=== PATIENT | male | born 1980 | race Caucasian/White ===

== ENCOUNTER 2018-06-26 10:28 | Inpatient (IN) ==
[2018-06-26] MEDS ORDERED: Baclofen 10 MG Tablet PO ONE (11:53)
[2018-06-26] MEDS ORDERED: Loperamide 2 MG Capsule PO ONE (11:53)
[2018-06-26] MEDS ORDERED: Acetaminophen 325 MG Tablet PO ONE (11:53)
[2018-06-26] MEDS ORDERED: Sod Chloride 0.9% Inj 1,000 ML IV.SIG SCH (12:00)
--- NOTE | 2018-06-26 12:05 | ED ---
HPI General Chief complaint: Abdominal Pain Stated complaint: n/v/ fever x1day Source: patient and family Mode of arrival: ambulatory Limitations: no limitations History of Present Illness HPI narrative: This patient is brought in by his mother with the chief complaint of heroin withdrawal. Mother also voices concern over profound weight loss. She estimates over 50 pounds since February. His withdrawal complaints include abdominal pain, vomiting, restlessness and muscle cramping. He also has insomnia. Onset (ago): day(s) (Symptoms started yesterday. His last use of heroin was 2 days ago.) Severity: moderate Pain Consistency: constant Relieving factors: none Exacerbating factors: none Associated symptoms: diaphoresis, loss of appetite, nausea/vomiting and weakness Treatments prior to arrival: none Related Data Home Medications Medication Instructions Recorded Confirmed No Known Home Medications 06/26/18 06/26/18 Allergies Allergy/AdvReac Type Severity Reaction Status Date / Time No Known Allergies Allergy Verified 06/26/18 11:01 Review of Systems ROS: all other systems reviewed are negative [facility] Medical History Medical History Addiction to drug (Acute) Social History Social History Substance History: Active Abuse Second Hand Smoke Exposure: Yes Smoking Status: Current every day smoker Tobacco Type: Cigarettes How Often Do You Have a Drink Containing Alcohol: Monthly or less Recent Travel in [facility] within the Last 8 Weeks: No Recent Out of Country Travel within the Last 8 Weeks: No Substance Abuse Detail Heroin: Substance Use Status: Active Route Used Substance Abuse: Intravenously Substance Abuse Comment: last herion use 2 days ago Reason for Use: Feels Good Immunization History Tetanus Immunization: Unsure Hx Influenza Vaccine This Season: No Exam Const General: cooperative, well developed and other (Restless. Yawning.) Nutritional Appearance: cachectic, malnourished and thin Orientation: alert, awake and oriented x3 HENMT Head: normal to inspection, normocephalic and atraumatic Mouth: moist mucous membranes abnormal (Dry mucous membranes) Eyes Conjunctivae: conjunctivae normal Sclera: sclerae normal EOM: EOM intact bilaterally Neck Neck: normal visual inspection and full ROM Chest Chest: normal inspection of the chest Resp Effort & Inspection: normal respiratory effort and able to speak in complete sentences Auscultation: clear to auscultation bilaterally Cardio Rate: regular rate Rhythm: regular rhythm GI Inspection: normal to inspection Palpation: soft and nontender Back/Spine/Pelvis Cervical Spine: cervical ROM normal Thoracic/Lumbar Spine: thoraco-lumbar ROM normal Skin General: no rashes or lesions noted and turgor normal Neuro General: alert, awake, oriented x3, moves all extremities and CN's II-XI intact bilaterally Extrem General: normal to inspection and full ROM Psych Appearance: grossly normal Mental Status: mental status grossly normal Speech and Movement: speech and movement normal Mood: congruent mood Affect: normal affect Attitude: cooperative Thought Process: normal Thought Content: normal Judgment: judgment good Procedures Central Line Placement Right SC: Time Out Performed: Yes Patient Placed on Monitor/Pulse Ox: Yes MD Prep: mask, gown and gloves Central Line Prep: Chlorhexidine scrub Local anesthesia used: lidocaine 1% Amount of anesthesia used (mL): 3 Ultrasound Used for Placement: No Central Line Lumen Inserted: triple Post Procedure: sutured in place Patient Tolerated Procedure: well Complications: none Course Hospital Course: IV access has been difficult. An IV had been obtained but quickly infiltrated. Therefore, a central line was placed. The patient is not capable of giving consent. Consent was obtained from his mother. Reevaluation(s) Reevaluation #1: Patient continues to be very restless. He also seems disoriented. The nurses report that he vomited all of his p.o. medications. Time: 13:43 Consultations Consultation #1: ROSI Olivares for Dr. Luna Time: 14:32 Initial Documented Vital Signs Temperature 99.3 F 06/26/18 10:37 Pulse Rate 53 L 06/26/18 10:37 Respiratory Rate 20 06/26/18 10:37 Blood Pressure 128/74 06/26/18 10:37 Pulse Oximetry 99 06/26/18 10:37 Last Documented Vital Signs Temperature 99.3 F 06/26/18 10:37 Pulse Rate 58 L 06/26/18 13:35 Respiratory Rate 18 06/26/18 13:35 Blood Pressure 112/63 06/26/18 13:35 Pulse Oximetry 97 06/26/18 13:35 Medical Decision Making MDM Narrative Medical decision making narrative: This patient is brought in by his mother with the chief complaint of heroin withdrawal. She is also concerned regarding a 50+ pound weight loss over the last 3 or 4 months. The patient is markedly cachectic. He will be treated here in the emergency department with IV fluids, IV Ativan, IM promethazine, oral loperamide, oral baclofen and oral Tylenol. I believe that this patient will need to be admitted for profound malnutrition, rule out AIDS. Medical Screen Exam Complete: Yes Emergency Medical Condition: Yes Differential Diagnosis Differential Diagnosis: Differential diagnosis of weakness includes but is not limited to infection, CVA, electrolyte disturbance, renal failure, hypoglycemia Lab Data Result diagrams: 06/26/18 12:02 06/26/18 12:02 Lab Results 06/26/18 06/26/18 06/26/18 Range/Units 12: 12:02 13:27 CBC w Diff Auto diff final WBC 9.6 (4.0-11.0) th/mm3 RBC 4.48 L (4.50-5.90) mil/mm3 Hgb 14.1 (13.0-17.0) gm/dL Hct 40.9 (39.0-51.0) % MCV 91.3 (80.0-100.0) fL MCH 31.5 (27.0-34.0) pg MCHC 34.5 (32.0-36.0) % RDW 12.4 (11.6-17.2) % Plt Count 323 (150-450) th/mm3 MPV 8.3 (7.0-11.0) fL Neut % (Auto) 85.1 H (16.0-70.0) % Lymph % (Auto) 11.3 (9.0-44.0) % [place] % (Auto) 1.7 (0.0-8.0) % Eos % (Auto) 0.1 (0.0-4.0) % Baso % (Auto) 1.8 (0.0-2.0) % Neut # (Auto) 8.1 H (1.8-7.7) th/mm3 Lymph # (Auto) 1.1 (1.0-4.8) th/mm3 [place] # (Auto) 0.2 (0.0-0.9) th/mm3 Eos # (Auto) 0.0 (0.0-0.4) th/mm3 Baso # (Auto) 0.2 (0.0-0.2) th/mm3 WBC Differential . Differential Comment . Sodium 139 (136-145) meq/L Potassium 3.6 (3.5-5.1) meq/L Chloride 103 (98-107) meq/L Carbon Dioxide 28.4 (21.0-32.0) meq/L Anion Gap 8 (5-15) meq/L BUN 12 (7-18) mg/dL Creatinine 0.77 (0.60-1.30) mg/dL Estimated GFR Greater than 89 (>89) mL/min Random Glucose 115 H (74-106) mg/dL Lactic Acid 0.8 (0.4-2.0) mmol/L Calcium 8.4 L (8.5-10.1) mg/dL Total Bilirubin 0.8 (0.2-1.0) mg/dL AST 85 H (15-37) U/L ALT 138 H (12-78) U/L Alkaline Phosphatase 96 (45-117) U/L Total Protein 7.5 (6.4-8.2) g/dL Albumin 3.6 (3.4-5.0) g/dL Lipase 136 (73-393) U/L Imaging Data Radiologist's impression: Chest X-Ray 06/26/18 13:31 CONCLUSION: Subclavian line as above. ECG Data EKG Prior to Arrival: No Attestation: I personally reviewed and interpreted this ECG as follows: (EKG shows a sinus bradycardia with a rate of 55. No acute ST changes.) Discharge Plan Discharge Disposition Patient Disposition: 30 Still Patient Discharge Details Diagnosis: Heroin withdrawal, Weakness, Abnormal weight loss Physicians Team ED Provider: Nehal Lai Primary Care Provider: Primary Care Christie García Rxs /Orders / Referrals /Forms Prescriptions: No Action No Known Home Medications RF: 0 Discharge Interventions Interventions: Vital Signs Last Done: 06/26/18 13:35 Status ED Status: Pending Admission
[2018-06-26 12:08] LABS: Baso # (Auto) 0.2 th/mm3 (0.0-0.2); Baso % (Auto) 1.8 % (0.0-2.0); Eos % (Auto) 0.1 % (0.0-4.0); Hematocrit 40.9 % (39.0-51.0); Hemoglobin 14.1 gm/dL (13.0-17.0); Lymph # (Auto) 1.1 th/mm3 (1.0-4.8); Lymph % (Auto) 11.3 % (9.0-44.0); Mean Corpuscular HGB Conc 34.5 % (32.0-36.0); Mean Corpuscular Hemoglobin 31.5 pg (27.0-34.0); Mean Corpuscular Volume 91.3 fL (80.0-100.0); Mean Platelet Volume 8.3 fL (7.0-11.0); Mono # (Auto) 0.2 th/mm3 (0.0-0.9); Mono % (Auto) 1.7 % (0.0-8.0); Neut # (Auto) 8.1 th/mm3 (1.8-7.7); Neut % (Auto) 85.1 % (16.0-70.0); Platelet Count 323 th/mm3 (150-450); Red Blood Count 4.48 mil/mm3 (4.50-5.90); Red Cell Distribution Width 12.4 % (11.6-17.2); White Blood Count 9.6 th/mm3 (4.0-11.0)
[2018-06-26 12:17] LABS: Chloride 103 meq/L (98-107); Potassium 3.6 meq/L (3.5-5.1); Sodium 139 meq/L (136-145)
[2018-06-26 12:21] LABS: Albumin 3.6 g/dL (3.4-5.0); Anion Gap 8 meq/L (5-15); Calcium 8.4 mg/dL (8.5-10.1); Carbon Dioxide 28.4 meq/L (21.0-32.0); Lipase 136 U/L (73-393)
[2018-06-26 12:22] LABS: Blood Urea Nitrogen 12 mg/dL (7-18); Glucose,Random 115 mg/dL (74-106)
[2018-06-26 12:24] LABS: Alanine Aminotransferase 138 U/L (12-78); Aspartate Aminotransferase 85 U/L (15-37); Glomerular Filtration Rate Greater Than 89 mL/min (>89)
[2018-06-26 12:26] LABS: Total Protein 7.5 g/dL (6.4-8.2)
[2018-06-26 12:27] LABS: Alkaline Phosphatase 96 U/L (45-117)
--- NOTE | 2018-06-26 14:01 | XR ---
EXAM DATE: 06/26/2018 1:49 PM EDT AGE/SEX: 38 years / Male INDICATIONS: Evaluate central line placement. CLINICAL DATA: This is the patient's initial encounter. Patient reports that signs and symptoms have been present for 1 day and indicates a pain score of 0/10. MEDICAL/SURGICAL HISTORY: None. None. COMPARISON: No prior exams available for comparison. FINDINGS: Right subclavian central venous catheter is noted and the tip overlies the SVC. Lungs are clear. Hear t and mediastinal contours are normal. Osseous structures are intact. CONCLUSION: Subclavian line as above. Electronically signed by: Phill Donald MD 06/26/2018 2:00 PM EDT
[2018-06-26 14:31] LABS: Bilirubin,Urine Negative (Negative); Clarity,Urine Cloudy (Clear); Color,Urine Yellow (Yellw/Straw); Glucose,Urine (UA) Negative (Negative); Leukocyte Esterase,Urine Negative (Negative); Nitrite,Urine Negative (Negative); PH,Urine 8.5 (5.0-8.5)
[2018-06-26] MEDS ORDERED: Bisacodyl 10 MG Supp RECTAL PRN (14:39)
[2018-06-26] MEDS ORDERED: Temazepam 15 MG Capsule PO PRN (14:39)
[2018-06-26] MEDS ORDERED: Acetaminophen 325 MG Tablet PO PRN (14:39)
[2018-06-26] MEDS ORDERED: Aluminum/Magnesium/Simethacone Susp 30 ML UDC PO PRN (14:44)
[2018-06-26 14:53] LABS: Collection Time,Urine 1424 hours
[2018-06-26 14:55] LABS: Amorphous Sediment,Urine Many /hpf; Squamous Epithelial Cell,Urine 0-5 /hpf (0-5)
[2018-06-26] MEDS: Sod Chloride 0.9% Inj 1,000 ML IV.CONT SCH (15:02)
[2018-06-26] MEDS ORDERED: hydrALAZINE HCl Inj 20 MG/ML Vial IV.PUSH PRN (16:13)
[2018-06-26] MEDS ORDERED: LORazepam 1 MG Tablet PO PRN (16:13)
--- NOTE | 2018-06-26 16:24 | P.HP ---
History of Present Illness Primary Care Physician: No Primary Care Physician Chief Complaint: Patient brought in by his mother for heroin withdrawal History of Present Illness: 38-year-old male with known history of substance abuse. Information was unobtainable from the patient due to his altered mentation, encephalopathy. Patient is barely orientated to self. Information was taken from mother. She indicates that patient had been living in [facility] and apparently had been doing well up until about 2 weeks ago when she noticed a change in his personality. He was indicated that the patient notified his mother that he is using drugs again and wanted to get help. So she has been driving for the last [address] up to [place] and pick him up and bring him home. They returned back to her house yesterday. She indicates that she has never seen him in this condition before being so malnourished, skinny, ribs poking out. Today they are trying to locate rehab facility in order for him to go. However he started developing nausea and vomiting and change in mentation. They decided that his withdrawal is beyond their capabilities so they brought him to the hospital for evaluation. Patient had workup done in the emergency department and because of his mentation, physical status it was recommended that the patient be admitted for further evaluation and management. - Diagnosis (1) Encephalopathy (2) Heroin withdrawal (3) Weakness (4) Abnormal weight loss Review of Systems unobtainable due to mental status PMFSH - History History Provided By: Patient, Family Member - Medical History Medical History: Medical History (Last Reviewed 06/26/18 @ 16:19 by ROSI Kang) Addiction to drug - Surgical History Surgical History: Surgical History (Last Updated 06/26/18 @ 16:19 by ROSI Kang) No history of previous surgery - Family History Family History: Family History (Last Updated 06/26/18 @ 16:18 by ROSI Kang) Father History of throat cancer - Tobacco History Second Hand Smoke Exposure: Yes Tobacco Use In Past 30 Days: Yes Smoking Status: Current every day smoker Tobacco Type: Cigarettes - Alcohol History How Often Do You Have a Drink Containing Alcohol: Monthly or less - Substance Use History Substance History: Active Abuse - Substance Use Type Heroin Status: Active Route Used: Intravenously Reason for Use: Feels Good Comment: last herion use 2 days ago Other Type: Fentanyl Status: Active - Travel History Recent Travel in the [place] Within the Last 8 Weeks: No Recent Travel Out of the Country Within the Last 8 Weeks: No - Immunization History Tetanus Immunization: Unsure Hx Influenza Vaccine This Season: No Medications and Allergies Active Medications: Active Medications Acetaminophen (Tylenol) 650 mg PO Q4H PRN PRN Reason: HEADACHE OR TEMP > 101 F Al Hydrox/Mg Hydrox/Simethicone (Mag-Al Plus Susp Liq) 30 ml PO Q6H PRN PRN Reason: INDIGESTION Al Hydroxide/Mg Hydroxide (Milk Of Magnesia Liq) 30 ml PO Q12H PRN PRN Reason: Mild Constipation Bisacodyl (Dulcolax Supp) 10 mg RECTAL DAILY PRN PRN Reason: SEVERE CONSITIPATION Clonidine HCl (Catapres) 0.1 mg PO Q6H PRN PRN Reason: SBP>160, DBP>90 Flumazenil (Romazecon Inj) 0.2 mg IV.PUSH Q1M PRN PRN Reason: OVERSEDATION Haloperidol Lactate (Haldol Inj) 1 mg IV.PUSH Q15M PRN PRN Reason: for severe agitation Hydralazine HCl (Apresoline Inj) 20 mg IV.PUSH Q6HR PRN PRN Reason: SBP>200, DBP>100 Sodium Chloride (Ns Inj) 1,000 mls @ 0 mls/hr IV.SIG BOLUS [facility] Last Admin: 06/26/18 12:55 Dose: 999 mls/hr Sodium Chloride (Ns Inj) 1,000 mls @ 100 mls/hr IV.CONT .Q10H [facility] Last Admin: 06/26/18 15:02 Dose: 100 mls/hr Lactulose (Lactulose Liq) 30 ml PO DAILY PRN PRN Reason: SEVERE CONSITIPATION Lorazepam (Ativan) 1 mg PO Q4H PRN PRN Reason: for CIWA 8-10 Lorazepam (Ativan) 2 mg PO Q2H PRN PRN Reason: for CIWA 11-14 Lorazepam (Ativan Inj) 2 mg IV.PUSH Q2H PRN PRN Reason: for CIWA 11-14 Lorazepam (Ativan Inj) 2 mg IV.PUSH Q1H PRN PRN Reason: for CIWA 15-20 Lorazepam (Ativan Inj) 2 mg IV.PUSH Q15M PRN PRN Reason: for CIWA > 20 Lorazepam (Ativan Inj) 1 mg IV.PUSH Q4H PRN PRN Reason: for CIWA 8-10 Metoclopramide HCl (Reglan Inj) 5 mg IV.PUSH Q6HR PRN; Protocol PRN Reason: NAUSEA OR VOMITING Ondansetron HCl (Zofran Inj) 4 mg IV.PUSH Q6H PRN PRN Reason: NAUSEA OR VOMITING Senna/Docusate Sodium (Kaylyn-Colace) 1 tab PO BID HECTOR Sennosides (Senokot) 17.2 mg PO Q12H PRN PRN Reason: Moderate Constipation Sodium Chloride (Ns Flush) 2 ml IV.FLUSH PRN PRN PRN Reason: FLUSH AFTER USING IV ACCESS Temazepam (Restoril) 15 mg PO HS PRN PRN Reason: INSOMNIA Allergies Allergy/AdvReac Type Severity Reaction Status Date / Time No Known Allergies Allergy Verified 06/26/18 11:01 Home Medications Medication Instructions Recorded Confirmed Type No Known Home Medications 06/26/18 06/26/18 History Exam Vital signs: Vital Signs 06/26/18 10:37 06/26/18 11:02 06/26/18 13:35 Temperature 99.3 F Pulse Rate 53 L 58 L 58 L Respiratory Rate 20 17 18 Blood Pressure 128/74 131/72 112/63 Pulse Oximetry 99 98 97 Intake & Output 06/25/18 06/26/18 06/26/18 18:59 06:59 18:59 Weight 57.9 kg Narrative: GENERAL: Well-developed, cachectic, in no acute distress. alert and only orientated to person HEENT: Head is normocephalic without any lesions or masses noted. Facial features are symmetric. Bitemporal wasting eyes: Pupils equal round reactive to light. Extraocular muscles are intact. Conjunctivae were clear. Oropharyngeal : Pharynx without any erythema edema. Tongue is midline without deviation. Buccal mucosa is moist without any masses or lesions NECK: Supple without any masses. Trachea midline no deviation. No JVD, no bruits are appreciated CARDIAC: Regular rhythm, regular rate. S1/S2 are heard. No murmurs gallops or rubs. LUNGS: Clear to auscultation bilaterally. No wheeze, rhonchi or rales. No use of accessory muscles on inspiration or expiration. ABDOMEN: Soft, nontender. Nondistended. Bowel sounds heard in all 4 quadrants. No organomegaly or masses. Negative rebound, negative guarding EXTREMITIES: No edema, pulses are equal bilaterally. No cyanosis or clubbing NEUROLOGY: Cranial nerves II through XII grossly intact. Muscle strength 5/5 in upper and lower extremities bilaterally. Deep tendon reflexes are 2+ in upper and lower extremities bilaterally. Results - Labs CBC & Chem 7: 06/26/18 12:02 06/26/18 12:02 Labs: Laboratory Results - last 24 hr 06/26/18 06/26/18 06/26/18 12:02 12: 13:27 CBC w Diff Auto diff final WBC 9.6 RBC 4.48 L Hgb 14.1 Hct 40.9 MCV 91.3 MCH 31.5 MCHC 34.5 RDW 12.4 Plt Count 323 MPV 8.3 Neut % (Auto) 85.1 H Lymph % (Auto) 11.3 [place] % (Auto) 1.7 Eos % (Auto) 0.1 Baso % (Auto) 1.8 Neut # (Auto) 8.1 H Lymph # (Auto) 1.1 [place] # (Auto) 0.2 Eos # (Auto) 0.0 Baso # (Auto) 0.2 WBC Differential . Differential Comment . Sodium 139 Potassium 3.6 Chloride 103 Carbon Dioxide 28.4 Anion Gap 8 BUN 12 Creatinine 0.77 Estimated GFR Greater than 89 Random Glucose 115 H Lactic Acid 0.8 Calcium 8.4 L Total Bilirubin 0.8 AST 85 H ALT 138 H Alkaline Phosphatase 96 Total Protein 7.5 Albumin 3.6 Lipase 136 Ur Collection Type Urine Color Urine Clarity Urine pH Ur Specific [place] Urine Protein Urine Glucose (UA) Urine Ketones Urine Occult Blood Urine Nitrate Urine Bilirubin Urine Urobilinogen Ur Leukocyte Esterase Ur Squamous Epith Cells Amorphous Sediment Micro UA Comment Ur Microscopic Review Urine Culture Comments Urine Collection Time 06/26/18 14:24 CBC w Diff WBC RBC Hgb Hct MCV MCH MCHC RDW Plt Count MPV Neut % (Auto) Lymph % (Auto) [place] % (Auto) Eos % (Auto) Baso % (Auto) Neut # (Auto) Lymph # (Auto) [place] # (Auto) Eos # (Auto) Baso # (Auto) WBC Differential Differential Comment Sodium Potassium Chloride Carbon Dioxide Anion Gap BUN Creatinine Estimated GFR Random Glucose Lactic Acid Calcium Total Bilirubin AST ALT Alkaline Phosphatase Total Protein Albumin Lipase Ur Collection Type Cath Urine Color Yellow Urine Clarity Cloudy H Urine pH 8.5 Ur Specific [place] 1.010 Urine Protein 100 H Urine Glucose (UA) Negative Urine Ketones 15 H Urine Occult Blood Negative Urine Nitrate Negative Urine Bilirubin Negative Urine Urobilinogen 1.0 Ur Leukocyte Esterase Negative Ur Squamous Epith Cells 0-5 Amorphous Sediment Many H Micro UA Comment Cath-culture not ind Ur Microscopic Review Microscopic reviewed Urine Culture Comments Cath-cult not ind Urine Collection Time 1424 - Imaging Impressions Chest X-Ray 06/26/18 13:31 CONCLUSION: Subclavian line as above. Caprini VTE Risk Assessment Caprini VTE Risk Assessment: Moderate/High Risk (score >= 2) Caprini Risk Assessment Model: Point Value = 1 Point Value = 2 Point Value = 3 Point Value = 5 Age 41-60 Minor surgery BMI > 25 kg/m2 Swollen legs Varicose veins or History of unexplained or recurrent spontaneous Oral contraceptives or hormone replacement Sepsis (< 1 month) Serious lung disease, including pneumonia (< 1 month) Abnormal pulmonary function Acute myocardial infarction Congestive heart failure (< 1 month) History of inflammatory bowel disease Medical patient at bed rest Age 61-74 Arthroscopic surgery Major open surgery (> 45 min) Laparoscopic surgery (> 45 min) Malignancy Confined to bed (> 72 hours) Immobilizing plaster cast Central venous access Age >= 75 History of VTE Family history of VTE Factor V Leiden Prothrombin [id number] Lupus anticoagulant Anticardiolipin antibodies Elevated serum homocysteine Heparin-induced thrombocytopenia Other congenital or acquired thrombophilia Stroke (< 1 month) Elective arthroplasty Hip, pelvis, or leg fracture Acute spinal cord injury (< 1 month) Prophylaxis Regimen: Total Risk Factor Score Risk Level Prophylaxis Regimen 0-1 Low Early ambulation 2 Moderate Order ONE of the following: *Sequential Compression Device (SCD) *Heparin 5000 units SQ BID 3-4 Higher Order ONE of the following medications: *Heparin 5000 units SQ TID *Enoxaparin/Lovenox 40 mg SQ daily (WT < 150 kg, CrCl > 30 mL/min) *Enoxaparin/Lovenox 30 mg SQ daily (WT < 150 kg, CrCl > 10-29 mL/min) *Enoxaparin/Lovenox 30 mg SQ BID (WT < 150 kg, CrCl > 30 mL/min) AND/OR *Sequential Compression Device (SCD) 5 or more Highest Order ONE of the following medications: *Heparin 5000 units SQ TID (Preferred with Epidurals) *Enoxaparin/Lovenox 40 mg SQ daily (WT < 150 kg, CrCl > 30 mL/min) *Enoxaparin/Lovenox 30 mg SQ daily (WT < 150 kg, CrCl > 10-29 mL/min) *Enoxaparin/Lovenox 30 mg SQ BID (WT < 150 kg, CrCl > 30 mL/min) AND *Sequential Compression Device (SCD) Assessment and Plan - Assessment (1) Encephalopathy Code(s): G93.40 - Encephalopathy, unspecified Status: Acute (2) Heroin withdrawal Code(s): F11.23 - Opioid dependence with withdrawal Status: Acute (3) Weakness Code(s): R53.1 - Weakness Status: Acute (4) Abnormal weight loss Code(s): R63.4 - Abnormal weight loss Status: Acute - Plan Toxic encephalopathy -Secondary to heroin/fentanyl withdrawal -Continue monitor neurological function -When further studies to rule out any metabolic encephalopathy -We will obtain CT of the brain to rule out any organic etiology Heroin/fentanyl withdrawal -Patient will need to be in ICU for detox -Ativan protocol for withdrawal symptoms -Haldol for severe agitation -Vasotec/Apresoline/clonidine for blood pressure control -Zofran IV for nausea vomiting -Check hepatitis panel, HIV testing Polysubstance abuse -Case management will need to be consulted for outpatient rehab DVT prevention -Sequential compression devices, subcutaneous heparin Critical care time 45 minutes excluding procedures Discussed Condition With: Nursing staff, ER physician, mother
[2018-06-26] MEDS: Haloperidol Inj 5 MG/ML Ampul IV.PUSH PRN ×3 (17:14→20:32)
--- NOTE | 2018-06-26 17:51 | P.DIET ---
Nutritional Evaluation Type of nutrition evaluation: initial Nutrition consult regarding: Diet Evaluation [place] [facility] [place] [facility] [place]nutrition Subjective Oral Diet Tolerance Assessment Indicates: Nausea, Vomiting Subjective Comments: ED progress note w/ "profound wt loss", greater than 50-lb wt loss since February of this year; "pt is markedly cachectic"; nausea, vomiting weakness Objective - Diagnosis Addiction to Drug - Indications of Malnutrition Classification: Starvation-related Malnutrition Severity: Severe Characteristics: Weight loss, Muscle loss - Objective [place] body weight: 81 kg % IBW: 71 Body Weight Used for Calculations: Actual (57.9 kg) Energy Needs - Lower Range (kCal/kg): 38 Energy Needs - Upper Range (kCal/kg): 43 Lower Limit kCal/kg (kCals): 2,200 Upper Limit kCal/kg (kCals): 2,490 Lower Limit Protein Factor (Grams per Kg): 1.3 Upper Limit Protein Factor (Grams per Kg): 1.6 Lower Protein Needs (Protein): 75 Upper Protein Needs (Protein): 93 Dietitian Reviewed in Medical Record: Curent medications, Intake & Output, Labs , Medical history Diet Order: NPO Objective Comments: PMH: heroin use Glucose 115 Meds Include:Haldol, Reglan, Zofran Assessment Assessment: Pt is at high nutrition risk r/t malnutrition, clinical status, severe wt loss w /low BMI 17.3. Pt is currently NPO. High risk for Re-feeding syndrome. In addition to current labs, Rec a Mg and Phosphorus level and recheck daily. Rec Thiamine daily 5 to 7-days. For TF'ing, Rec Vital 1.5 @ 30ml/hr Day 1-2, as tolerated, Day 2-3 advance to 40ml/hr, as tolerated, Day 3-5 advance 10ml/hr, Q 4-hr, as tolerated, to goal rate 65ml/hr to offer 2340 kcal, 105.3g Protein and 1192ml free water. Additional Recs to follow r/t Clinical Course. Recommendations: 1. Monitor NPO status 2. High risk for Re-feeding syndrome 3. Rec a Mg and Phosphorus level and recheck daily 4. Rec Thiamine daily 5 to 7-days 5. For TF'ing, Rec Vital 1.5 @ 30ml/hr Day 1-2, as tolerated, Day 2-3 advance to 40ml/hr, as tolerated, Day 3-5 advance 10ml/hr, Q 4-hr, as tolerated, to goal rate 65ml/hr 6. Additional Recs to follow r/t Clinical Course Dietitian to Monitor: Lab values, Electrolytes, Renal labs, Liver enzymes, Glucose level, Intake & Output, Weight change, Diet advancement, Medical course
[2018-06-26] MEDS: Heparin - SQ 10,000 UNITS/ML Vial SQ SCH (21:25)
[2018-06-26] MEDS: Senna/Docusate Sodium 8.6/50 MG Tablet PO SCH (21:25)
--- NOTE | 2018-06-26 21:38 | ECG ---
Date Performed: 06/26/2018 Time Performed: 11:16:31 PTAGE: 38 years EKG: SINUS BRADYCARDIA WITH SHORT MT INTERVAL POSSIBLE PROLONGED QT INTERVAL ABNORMAL ECG NO PREVIOUS TRACING DOCTOR: Mookie Chao Interpretating Date/Time 06/26/2018 21:36:11
[2018-06-26] MEDS ORDERED: Haloperidol Inj 5 MG/ML Ampul IM ONE (22:01)
[2018-06-26 23:58] LABS: Folate 13.9 ng/mL (3.1-17.5)
[2018-06-27] MEDS ORDERED: Acetaminophen 650 MG Supp RECTAL ONE
[2018-06-27 00:30] LABS: Hepatitis A IgM Antibody Nonreactive (Nonreactive); Hepatitits B Surface Antigen Nonreactive (Nonreactive)
[2018-06-27 05:10] LABS: Baso % (Auto) 0.3 % (0.0-2.0); Eos % (Auto) 0.1 % (0.0-4.0); Hematocrit 35.2 % (39.0-51.0); Hemoglobin 11.8 gm/dL (13.0-17.0); Lymph # (Auto) 1.7 th/mm3 (1.0-4.8); Lymph % (Auto) 12.2 % (9.0-44.0); Mean Corpuscular HGB Conc 33.5 % (32.0-36.0); Mean Corpuscular Hemoglobin 31.1 pg (27.0-34.0); Mean Corpuscular Volume 92.6 fL (80.0-100.0); Mean Platelet Volume 7.9 fL (7.0-11.0); Mono # (Auto) 0.6 th/mm3 (0.0-0.9); Mono % (Auto) 4.6 % (0.0-8.0); Neut # (Auto) 11.7 th/mm3 (1.8-7.7); Neut % (Auto) 82.8 % (16.0-70.0); Platelet Count 277 th/mm3 (150-450); Red Cell Distribution Width 12.5 % (11.6-17.2)
[2018-06-27 05:23] LABS: Albumin 3.1 g/dL (3.4-5.0); Anion Gap 7 meq/L (5-15); Blood Urea Nitrogen 11 mg/dL (7-18); Calcium 7.5 mg/dL (8.5-10.1); Carbon Dioxide 25.7 meq/L (21.0-32.0); Chloride 112 meq/L (98-107); Glucose,Random 107 mg/dL (74-106); Potassium 3.6 meq/L (3.5-5.1); Sodium 145 meq/L (136-145)
[2018-06-27 05:28] LABS: Alanine Aminotransferase 101 U/L (12-78); Aspartate Aminotransferase 79 U/L (15-37); Glomerular Filtration Rate Greater Than 89 mL/min (>89); Total Protein 6.3 g/dL (6.4-8.2)
[2018-06-27 05:30] LABS: Alkaline Phosphatase 77 U/L (45-117)
[2018-06-27] MEDS: Sod Chloride 0.9% Inj 1,000 ML IV.CONT SCH ×2 (05:35→10:11)
[2018-06-27] MEDS: Piperacil/Tazo 3.375 GM Premix 50 ML IV.SIG SCH ×3 (05:55→19:28)
--- NOTE | 2018-06-27 06:39 | XR ---
EXAM DATE: 06/27/2018 6:30 AM EDT AGE/SEX: 38 years / Male INDICATIONS: Fever and altered mental status. CLINICAL DATA: This is the patient's subsequent encounter. Patient reports that signs and symptoms h ave been present for 2 days and indicates a pain score of Nonresponsive. MEDICAL/SURGICAL HISTORY: None. None. COMPARISON: HPO, CHEST 1V SINGLE AP, 06/26/2018. . FINDINGS: Portable AP view of the chest demonstrates a normal-sized cardiac silhouette. No effusion, consolidat ion, or pneumothorax is identified. The bones and soft tissues demonstrate no acute finding. Right lazo bclavian central line tip is in the SVC. EKG lines overlie the patient. CONCLUSION: No acute cardiopulmonary abnormality is identified. Electronically signed by: Ken Traore MD 06/27/2018 6:37 AM EDT
[2018-06-27] MEDS: Heparin - SQ 10,000 UNITS/ML Vial SQ SCH ×2 (08:23→22:27)
[2018-06-27] MEDS: Senna/Docusate Sodium 8.6/50 MG Tablet PO SCH ×2 (08:24→21:25)
[2018-06-27 09:58] LABS: Amphetamine Screen,Urine Neg (Neg); Barbiturate Screen,Urine Neg (Neg); Cannabinoid Screen,Urine Pos (Neg)
[2018-06-27 09:59] LABS: Cocaine Screen,Urine Pos (Neg)
[2018-06-27 10:01] LABS: Opiate Screen,Urine Neg (Neg)
[2018-06-27 13:39] LABS: ABG Base Excess -0.3 mmol/L (-2-2); ABG PCO2 32 mmHg (38-42); ABG PO2 101 mmHg (61-120)
--- NOTE | 2018-06-27 13:47 | P.PN ---
Subjective Interval history: Follow up for heroin withdrawal and possible aspiration. Patient remains drowsy , wakes up on physical and painful stimuli. Had fever overnight. Physical Exam Vital signs: Vital Signs 06/26/18 16:16 06/26/18 17:00 06/26/18 20:00 Temperature 99.3 F Pulse Rate 56 L 60 94 H Respiratory Rate 29 H 27 H Blood Pressure 124/67 99/66 L Pulse Oximetry 98 06/26/18 20:10 06/26/18 21:06 06/26/18 23:43 Temperature 100.6 F H Pulse Rate 76 72 99 H Respiratory Rate 33 H 31 H 34 H Blood Pressure 124/70 124/63 169/64 H Pulse Oximetry 97 97 93 L 06/27/18 00:06 06/27/18 04:00 06/27/18 05:22 Temperature 101.9 F H Pulse Rate 98 H 62 Respiratory Rate 30 H 43 H Blood Pressure 110/52 L 114/70 Pulse Oximetry 94 L 93 L 06/27/18 07:00 06/27/18 08:00 06/27/18 09:00 Temperature 97.7 F Pulse Rate 58 L 62 50 L Respiratory Rate 38 H 36 H 35 H Blood Pressure 114/61 121/65 128/65 Pulse Oximetry 06/27/18 10:00 06/27/18 11:00 Temperature Pulse Rate 62 74 Respiratory Rate 37 H 38 H Blood Pressure 121/72 133/62 Pulse Oximetry Intake & Output 06/26/18 06/27/18 06/27/18 18:59 06:59 18:59 Intake Total 1000 / 1000 2098 / 2098 1050 / 1050 Output Total 0 / 0 600 / 600 Balance 1000 / 1000 1499 / 1499 1050 / 1050 Weight 60.6 kg 61.4 kg Intake: IV 1000 / 1000 2098 / 2098 1050 / 1050 NS Inj 1,000 ML @ 100 mls/hr IV 1998 1000 / 1000 .CONT .Q10H HECTOR Rx#:[id number] Ofirmev Inj 1,000 mg In 100 ml 100 / 100 @ 400 mls/hr IV.SIG ONCE ONE Rx #:[id number] Zosyn 3.375 GM Premix 50 ML @ 0 / 0 50 / 50 100 mls/hr IV.SIG Q6H HECTOR Rx#: [id number] NS Inj 1,000 ML @ Wide Open IV. 1000 / 1000 SIG BOLUS HECTOR Rx#:[id number] Oral 0 / 0 Output: Urine 0 / 0 Urine Amount (Catheter) 600 / 600 Indwelling Urethral Catheter 600 / 600 Other: Date of Last Bowel Movement 06/26/18 Weight On Admission 60.6 kg Narrative: GENERAL: Drowsy but wakes up. Not able to communicate much. SKIN: Warm and dry. HEAD: Normocephalic. EYES: No scleral icterus. No injection or drainage. NECK: Supple, trachea midline. No JVD or lymphadenopathy. CARDIOVASCULAR: Regular rate and rhythm without murmurs, gallops, or rubs. RESPIRATORY: Breath sounds equal bilaterally. No accessory muscle use. GASTROINTESTINAL: Abdomen soft, non-tender, nondistended. MUSCULOSKELETAL: No cyanosis, or edema. BACK: Nontender without obvious deformity. No CVA tenderness. - Urinary Catheter Management Straight Cath placed during this visit: yes Reason for continuing: Acute urinary retention Insertion date: 06/27/18 Insertion time: 04:30 Indwelling Urethral Catheter Cath placed during this visit: yes Reason for continuing: Acute urinary retention Insertion date: 06/27/18 Insertion time: 00:00 Results - Labs CBC & Chem 7: 06/27/18 04:25 06/27/18 04:25 Laboratory Results - last 24 hr 06/26/18 06/26/18 06/26/18 13:27 14:24 15:38 CBC w Diff WBC RBC Hgb Hct MCV MCH MCHC RDW Plt Count MPV Neut % (Auto) Lymph % (Auto) Harmon % (Auto) Eos % (Auto) Baso % (Auto) Neut # (Auto) Lymph # (Auto) Harmon # (Auto) Eos # (Auto) Baso # (Auto) WBC Differential Differential Comment Puncture Site Patient Temperature O2 Saturation ABG pH ABG pCO2 ABG pO2 ABG HCO3 ABG O2 Content ABG Base Excess ABG Methemoglobin Rickie Test Hemoglobin Carboxyhemoglobin O2 Delivery Device Inspired O2 Critical Value Sodium Potassium Chloride Carbon Dioxide Anion Gap BUN Creatinine Estimated GFR Random Glucose Lactic Acid 0.8 Calcium Total Bilirubin AST ALT Alkaline Phosphatase Ammonia Total Protein Albumin Vitamin B12 Folate TSH Free T4 Ur Collection Type Cath Urine Color Yellow Urine Clarity Cloudy H Urine pH 8.5 Ur Specific [place] 1.010 Urine Protein 100 H Urine Glucose (UA) Negative Urine Ketones 15 H Urine Occult Blood Negative Urine Nitrate Negative Urine Bilirubin Negative Urine Urobilinogen 1.0 Ur Leukocyte Esterase Negative Ur Squamous Epith Cells 0-5 Amorphous Sediment Many H Micro UA Comment Cath-culture not ind Ur Microscopic Review Microscopic reviewed Urine Culture Comments Cath-cult not ind Urine Collection Time 1424 Nasal Screen MRSA (PCR) Urine Opiates Screen Ur Barbiturates Screen Ur Amphetamines Screen U Benzodiazepines Scrn Urine Cocaine Screen U Cannabinoids Screen RPR Hepatitis A IgM Ab Nonreactive Hep Bs Antigen Nonreactive Hep B Core IgM Ab Nonreactive Hep C IgG Ab Reactive H HIV 1&2 Ab/P24 Ag 4thGn Nonreactive 06/26/18 06/26/18 06/26/18 18:45 18:45 18:45 CBC w Diff WBC RBC Hgb Hct MCV MCH MCHC RDW Plt Count MPV Neut % (Auto) Lymph % (Auto) [place] % (Auto) Eos % (Auto) Baso % (Auto) Neut # (Auto) Lymph # (Auto) [place] # (Auto) Eos # (Auto) Baso # (Auto) WBC Differential Differential Comment Puncture Site Patient Temperature O2 Saturation ABG pH ABG pCO2 ABG pO2 ABG HCO3 ABG O2 Content ABG Base Excess ABG Methemoglobin Rickie Test Hemoglobin Carboxyhemoglobin O2 Delivery Device Inspired O2 Critical Value Sodium Potassium Chloride Carbon Dioxide Anion Gap BUN Creatinine Estimated GFR Random Glucose Lactic Acid Calcium Total Bilirubin AST ALT Alkaline Phosphatase Ammonia 15 Total Protein Albumin Vitamin B12 789 Folate 13.9 TSH Free T4 Ur Collection Type Urine Color Urine Clarity Urine pH Ur Specific [place] Urine Protein Urine Glucose (UA) Urine Ketones Urine Occult Blood Urine Nitrate Urine Bilirubin Urine Urobilinogen Ur Leukocyte Esterase Ur Squamous Epith Cells Amorphous Sediment Micro UA Comment Ur Microscopic Review Urine Culture Comments Urine Collection Time Nasal Screen MRSA (PCR) Urine Opiates Screen Ur Barbiturates Screen Ur Amphetamines Screen U Benzodiazepines Scrn Urine Cocaine Screen U Cannabinoids Screen RPR Nonreactive Hepatitis A IgM Ab Hep Bs Antigen Hep B Core IgM Ab Hep C IgG Ab HIV 1&2 Ab/P24 Ag 4thGn 06/26/18 06/27/18 06/27/18 18:45 04:25 04:25 CBC w Diff Auto diff final WBC 14.0 H RBC 3.80 L Hgb 11.8 L D Hct 35.2 L MCV 92.6 MCH 31.1 MCHC 33.5 RDW 12.5 Plt Count 277 MPV 7.9 Neut % (Auto) 82.8 H Lymph % (Auto) 12.2 Harmon % (Auto) 4.6 Eos % (Auto) 0.1 Baso % (Auto) 0.3 Neut # (Auto) 11.7 H Lymph # (Auto) 1.7 Harmon # (Auto) 0.6 Eos # (Auto) 0.0 Baso # (Auto) 0.0 WBC Differential . Differential Comment . Puncture Site Patient Temperature O2 Saturation ABG pH ABG pCO2 ABG pO2 ABG HCO3 ABG O2 Content ABG Base Excess ABG Methemoglobin Rickie Test Hemoglobin Carboxyhemoglobin O2 Delivery Device Inspired O2 Critical Value Sodium 145 Potassium 3.6 Chloride 112 H D Carbon Dioxide 25.7 Anion Gap 7 BUN 11 Creatinine 0.64 Estimated GFR Greater than 89 Random Glucose 107 H Lactic Acid Calcium 7.5 L D Total Bilirubin 0.6 AST 79 H ALT 101 H Alkaline Phosphatase 77 Ammonia Total Protein 6.3 L D Albumin 3.1 L Vitamin B12 Folate TSH 0.207 L Free T4 Ur Collection Type Urine Color Urine Clarity Urine pH Ur Specific [place] Urine Protein Urine Glucose (UA) Urine Ketones Urine Occult Blood Urine Nitrate Urine Bilirubin Urine Urobilinogen Ur Leukocyte Esterase Ur Squamous Epith Cells Amorphous Sediment Micro UA Comment Ur Microscopic Review Urine Culture Comments Urine Collection Time Nasal Screen MRSA (PCR) Urine Opiates Screen Ur Barbiturates Screen Ur Amphetamines Screen U Benzodiazepines Scrn Urine Cocaine Screen U Cannabinoids Screen RPR Hepatitis A IgM Ab Hep Bs Antigen Hep B Core IgM Ab Hep C IgG Ab HIV 1&2 Ab/P24 Ag 4thGn 06/27/18 06/27/18 06/27/18 04:25 05:45 08:37 CBC w Diff WBC RBC Hgb Hct MCV MCH MCHC RDW Plt Count MPV Neut % (Auto) Lymph % (Auto) [place] % (Auto) Eos % (Auto) Baso % (Auto) Neut # (Auto) Lymph # (Auto) [place] # (Auto) Eos # (Auto) Baso # (Auto) WBC Differential Differential Comment Puncture Site Patient Temperature O2 Saturation ABG pH ABG pCO2 ABG pO2 ABG HCO3 ABG O2 Content ABG Base Excess ABG Methemoglobin Rickie Test Hemoglobin Carboxyhemoglobin O2 Delivery Device Inspired O2 Critical Value Sodium Potassium Chloride Carbon Dioxide Anion Gap BUN Creatinine Estimated GFR Random Glucose Lactic Acid 1.1 Calcium Total Bilirubin AST ALT Alkaline Phosphatase Ammonia Total Protein Albumin Vitamin B12 Folate TSH Free T4 1.17 Ur Collection Type Urine Color Urine Clarity Urine pH Ur Specific [place] Urine Protein Urine Glucose (UA) Urine Ketones Urine Occult Blood Urine Nitrate Urine Bilirubin Urine Urobilinogen Ur Leukocyte Esterase Ur Squamous Epith Cells Amorphous Sediment Micro UA Comment Ur Microscopic Review Urine Culture Comments Urine Collection Time Nasal Screen MRSA (PCR) Not detected Urine Opiates Screen Ur Barbiturates Screen Ur Amphetamines Screen U Benzodiazepines Scrn Urine Cocaine Screen U Cannabinoids Screen RPR Hepatitis A IgM Ab Hep Bs Antigen Hep B Core IgM Ab Hep C IgG Ab HIV 1&2 Ab/P24 Ag 4thGn 06/27/18 06/27/18 09:28 13:26 CBC w Diff WBC RBC Hgb Hct MCV MCH MCHC RDW Plt Count MPV Neut % (Auto) Lymph % (Auto) [place] % (Auto) Eos % (Auto) Baso % (Auto) Neut # (Auto) Lymph # (Auto) [place] # (Auto) Eos # (Auto) Baso # (Auto) WBC Differential Differential Comment Puncture Site Left brachial Patient Temperature 98.6 O2 Saturation 97 ABG pH 7.47 H ABG pCO2 32 L ABG pO2 101 ABG HCO3 23 ABG O2 Content 16.1 ABG Base Excess -0.3 ABG Methemoglobin 0.5 Rickie Test Present Hemoglobin 11.8 L Carboxyhemoglobin 1.0 O2 Delivery Device None Inspired O2 21 Critical Value No Sodium Potassium Chloride Carbon Dioxide Anion Gap BUN Creatinine Estimated GFR Random Glucose Lactic Acid Calcium Total Bilirubin AST ALT Alkaline Phosphatase Ammonia Total Protein Albumin Vitamin B12 Folate TSH Free T4 Ur Collection Type Urine Color Urine Clarity Urine pH Ur Specific [place] Urine Protein Urine Glucose (UA) Urine Ketones Urine Occult Blood Urine Nitrate Urine Bilirubin Urine Urobilinogen Ur Leukocyte Esterase Ur Squamous Epith Cells Amorphous Sediment Micro UA Comment Ur Microscopic Review Urine Culture Comments Urine Collection Time Nasal Screen MRSA (PCR) Urine Opiates Screen Neg Ur Barbiturates Screen Neg Ur Amphetamines Screen Neg U Benzodiazepines Scrn Neg Urine Cocaine Screen Pos H U Cannabinoids Screen Pos H RPR Hepatitis A IgM Ab Hep Bs Antigen Hep B Core IgM Ab Hep C IgG Ab HIV 1&2 Ab/P24 Ag 4thGn - Imaging Impressions Chest X-Ray 06/26/18 13:31 CONCLUSION: Subclavian line as above. Chest X-Ray 06/27/18 00:00 CONCLUSION: No acute cardiopulmonary abnormality is identified. Assessment and Plan - Assessment (1) Encephalopathy Code(s): G93.40 - Encephalopathy, unspecified Status: Acute (2) Heroin withdrawal Code(s): F11.23 - Opioid dependence with withdrawal Status: Acute (3) Weakness Code(s): R53.1 - Weakness Status: Acute (4) Abnormal weight loss Code(s): R63.4 - Abnormal weight loss Status: Acute - Plan Toxic encephalopathy -Secondary to heroin/fentanyl withdrawal -Continue monitor neurological function -Manual respiratory rate was counted to be 24/min. Probable aspiration pneumonia -May consider CT chest. Continue Zosyn 3.375g Q6hrs for now. Heroin/fentanyl withdrawal -Patient will need to be in ICU for detox -Ativan protocol for withdrawal symptoms -Haldol for severe agitation -Vasotec/Apresoline/clonidine for blood pressure control -Zofran IV for nausea vomiting -Hep C IgG Ab reactive. HIV 1 and 2 Ab and P24 ag pending. Polysubstance abuse -Case management will need to be consulted for outpatient rehab DVT prevention -Sequential compression devices, subcutaneous heparin
[2018-06-27] MEDS: Dextrose 5%/Lactated Ringer's 1,000 ML IV.CONT SCH (14:18)
[2018-06-28] MEDS: Dextrose 5%/Lactated Ringer's 1,000 ML IV.CONT SCH ×3 (00:01→21:42)
[2018-06-28] MEDS: Piperacil/Tazo 3.375 GM Premix 50 ML IV.SIG SCH ×4 (00:05→18:33)
[2018-06-28 04:57] LABS: Baso # (Auto) 0.2 th/mm3 (0.0-0.2); Baso % (Auto) 1.3 % (0.0-2.0); Eos % (Auto) 0.1 % (0.0-4.0); Hematocrit 36.8 % (39.0-51.0); Hemoglobin 12.2 gm/dL (13.0-17.0); Lymph # (Auto) 2.7 th/mm3 (1.0-4.8); Lymph % (Auto) 18.6 % (9.0-44.0); Mean Corpuscular HGB Conc 33.2 % (32.0-36.0); Mean Corpuscular Hemoglobin 30.8 pg (27.0-34.0); Mean Corpuscular Volume 92.6 fL (80.0-100.0); Mean Platelet Volume 7.8 fL (7.0-11.0); Mono # (Auto) 0.7 th/mm3 (0.0-0.9); Mono % (Auto) 4.7 % (0.0-8.0); Neut # (Auto) 11.2 th/mm3 (1.8-7.7); Neut % (Auto) 75.3 % (16.0-70.0); Platelet Count 275 th/mm3 (150-450); Red Blood Count 3.97 mil/mm3 (4.50-5.90); Red Cell Distribution Width 12.5 % (11.6-17.2); White Blood Count 14.8 th/mm3 (4.0-11.0)
[2018-06-28 05:04] LABS: Chloride 106 meq/L (98-107); Potassium 3.4 meq/L (3.5-5.1); Sodium 141 meq/L (136-145)
[2018-06-28 05:06] LABS: Calcium 7.8 mg/dL (8.5-10.1)
[2018-06-28 05:07] LABS: Anion Gap 8 meq/L (5-15); Blood Urea Nitrogen 8 mg/dL (7-18); Carbon Dioxide 27.4 meq/L (21.0-32.0); Glucose,Random 129 mg/dL (74-106)
[2018-06-28 05:10] LABS: Glomerular Filtration Rate Greater Than 89 mL/min (>89)
[2018-06-28] MEDS: Senna/Docusate Sodium 8.6/50 MG Tablet PO SCH ×2 (09:04→21:57)
[2018-06-28] MEDS: Heparin - SQ 10,000 UNITS/ML Vial SQ SCH ×2 (09:56→22:14)
[2018-06-29] MEDS: Piperacil/Tazo 3.375 GM Premix 50 ML IV.SIG SCH ×2 (00:22→06:39)
[2018-06-29 06:29] VITALS: RESP 19
[2018-06-29] MEDS: Dextrose 5%/Lactated Ringer's 1,000 ML IV.CONT SCH (06:39)
[2018-06-29 09:18] VITALS: PULSE 56
[2018-06-29 09:39] VITALS: BP 119/72; TEMP 98.6; O2SAT 99
--- NOTE | 2018-06-29 09:51 | P.PN ---
Subjective Interval history: Late entry for 06/28/2018 Follow up for heroin withdrawal and possible aspiration. Patient is much more alert, coherent. Wants to go home. Mother wants him to stay a bit longer. Due to blood cx result (one bottle positive), he decided to stay one more day. Physical Exam Vital signs: Vital Signs 06/28/18 10:00 06/28/18 11:00 06/28/18 12:00 Temperature 98.3 F Pulse Rate 50 L 50 L 60 Respiratory Rate 28 H 20 23 Blood Pressure 113/61 110/59 L 115/68 Pulse Oximetry 97 96 99 06/28/18 13:00 06/28/18 14:00 06/28/18 16:33 Temperature 98.6 F Pulse Rate 58 L 50 L 54 L Respiratory Rate 17 21 26 H Blood Pressure 120/64 118/63 107/57 L Pulse Oximetry 98 100 06/28/18 19:29 06/28/18 20:00 06/29/18 00:30 Temperature Pulse Rate 92 H 88 Respiratory Rate 14 26 H 17 Blood Pressure 115/64 103/56 L Pulse Oximetry 97 96 06/29/18 04:00 06/29/18 08:00 06/29/18 08:15 Temperature 98.5 F 98.6 F Pulse Rate 76 56 L 56 L Respiratory Rate 19 Blood Pressure 108/62 119/72 Pulse Oximetry 95 99 Intake & Output 06/28/18 06/29/18 06/29/18 18:59 06:59 18:59 Intake Total 1050 / 1050 1100 / 1100 Output Total 600 / 600 Balance 450 / 450 1100 / 1100 Weight 62.1 kg Intake: IV 1050 / 1050 1100 / 1100 D5W/LR Inj 1,000 ML @ 100 mls/ 1000 / 1000 1000 / 1000 hr IV.CONT .Q10H HECTOR Rx#: [id number] Zosyn 3.375 GM Premix 50 ML @ 50 / 50 100 / 100 100 mls/hr IV.SIG Q6H HECTOR Rx#: [id number] Oral 0 / 0 Output: Urine 600 / 600 Other: # Voids 5 Date of Last Bowel Movement 06/26/18 06/26/18 06/26/18 - Urinary Catheter Management Straight Cath placed during this visit: yes Reason for continuing: Acute urinary retention Insertion date: 09/04/18 Insertion time: 04:30 Indwelling Urethral Catheter Cath placed during this visit: yes, but has since been removed by the nurse Reason for continuing: Not indwelling catheter Insertion date: 06/27/18 Insertion time: 00:00 Removal date: 06/28/18 Removal time: 11:00 Results - Labs CBC & Chem 7: 06/28/18 04:40 06/28/18 04:40 Microbiology 06/27/18 05:50 Blood - Peripheral Aerobic Blood Culture - Preliminary No growth in 1 day 06/27/18 05:50 Blood - Peripheral Anaerobic Blood Culture - Preliminary gram positive cocci 06/27/18 05:55 Blood - Peripheral Aerobic Blood Culture - Preliminary No growth in 1 day 06/27/18 05:55 Blood - Peripheral Anaerobic Blood Culture - Preliminary No growth in 1 day Assessment and Plan - Assessment (1) Encephalopathy Code(s): G93.40 - Encephalopathy, unspecified Status: Acute (2) Heroin withdrawal Code(s): F11.23 - Opioid dependence with withdrawal Status: Acute (3) Weakness Code(s): R53.1 - Weakness Status: Acute (4) Abnormal weight loss Code(s): R63.4 - Abnormal weight loss Status: Acute - Plan Toxic encephalopathy -Secondary to heroin/fentanyl withdrawal -Resolved. Patient is coherent and pleasant, cooperative. Probable aspiration pneumonia -Continue Zosyn 3.375g Q6hrs for now. Will continue Augmentin on discharge. Heroin/fentanyl withdrawal -Patient will need to be in ICU for detox -Ativan protocol for withdrawal symptoms -Haldol for severe agitation -Vasotec/Apresoline/clonidine for blood pressure control -Zofran IV for nausea vomiting -Hep C IgG Ab reactive. HIV 1 and 2 Ab and P24 ag negative. Polysubstance abuse -Case management will need to be consulted for outpatient rehab DVT prevention -Sequential compression devices, subcutaneous heparin
--- NOTE | 2018-06-29 11:40 | P.DS ---
Date of admission: 06/27/18 07:56 Primary care physician: No Primary Care Physician Brief History from admission: 38-year-old male with known history of substance abuse. Information was unobtainable from the patient due to his altered mentation, encephalopathy. Patient is barely orientated to self. Information was taken from mother. She indicates that patient had been living in [facility] and apparently had been doing well up until about 2 weeks ago when she noticed a change in his personality. He was indicated that the patient notified his mother that he is using drugs again and wanted to get help. So she has been driving for the last [address] up to [place] and pick him up and bring him home. They returned back to her house yesterday. She indicates that she has never seen him in this condition before being so malnourished, skinny, ribs poking out. Today they are trying to locate rehab facility in order for him to go. However he started developing nausea and vomiting and change in mentation. They decided that his withdrawal is beyond their capabilities so they brought him to the hospital for evaluation. Patient had workup done in the emergency department and because of his mentation, physical status it was recommended that the patient be admitted for further evaluation and management. DS: Diagnosis - Discharge Diagnosis (1) Encephalopathy Status: Acute (2) Heroin withdrawal Status: Acute (3) Weakness Status: Acute (4) Abnormal weight loss Status: Acute DS: Medications - Discharge Medications Prescriptions: amoxicillin-pot clavulanate [Augmentin] 1 tab PO Q12H #20 tab DS: Summary Hospital Course: Mr. Landaverde is a pleasant 38-year-old male who was admitted to the hospital due to heroin overdose. Patient was admitted to the ICU and provided supportive care. He developed fever with T-max around 101.9F as well as leukocytosis. We suspected possible aspiration pneumonia. We started patient on Zosyn IV. Patient clinically improved and on 06/28/2018 patient was alert, oriented 3 and cooperative. Blood culture showed 1 bottle positive for GPC which is likely contaminated. Patient was watched 1 more night and evaluated on 06/29/2018 patient continues to do well. No fever or chills patient was subsequently discharged on Augmentin for 10 days. Patient was strongly counseled regarding his polysubstance abuse. He was also encouraged to seek help at [facility]. - Time Spent with Patient Total time spent providing and/or coordinating discharge services: Less than 30 minutes Exam Vital signs: Vital Signs 06/28/18 12:00 06/28/18 13:00 06/28/18 14:00 Temperature 98.3 F Pulse Rate 60 58 L 50 L Respiratory Rate 23 17 21 Blood Pressure 115/68 120/64 118/63 Pulse Oximetry 99 98 100 06/28/18 16:33 06/28/18 19:29 06/28/18 20:00 Temperature 98.6 F Pulse Rate 54 L 92 H Respiratory Rate 26 H 14 26 H Blood Pressure 107/57 L 115/64 Pulse Oximetry 97 06/29/18 00:30 06/29/18 04:00 06/29/18 08:00 Temperature 98.5 F Pulse Rate 88 76 56 L Respiratory Rate 17 19 Blood Pressure 103/56 L 108/62 Pulse Oximetry 96 95 06/29/18 08:15 Temperature 98.6 F Pulse Rate 56 L Respiratory Rate Blood Pressure 119/72 Pulse Oximetry 99 Intake & Output 06/28/18 06/29/18 06/29/18 18:59 06:59 18:59 Intake Total 1050 / 1050 1100 / 1100 Output Total 600 / 600 Balance 450 / 450 1100 / 1100 Weight 62.1 kg Intake: IV 1050 / 1050 1100 / 1100 D5W/LR Inj 1,000 ML @ 100 mls/ 1000 / 1000 1000 / 1000 hr IV.CONT .Q10H HECTOR Rx#: [id number] Zosyn 3.375 GM Premix 50 ML @ 50 / 50 100 / 100 100 mls/hr IV.SIG Q6H HECTOR Rx#: [id number] Oral 0 / 0 Output: Urine 600 / 600 Other: # Voids 5 Date of Last Bowel Movement 06/26/18 06/26/18 06/26/18 Narrative: GENERAL: Alert, oriented 3, NAD. SKIN: Warm and dry. HEAD: Normocephalic. EYES: No scleral icterus. No injection or drainage. NECK: Supple, trachea midline. No JVD or lymphadenopathy. CARDIOVASCULAR: Regular rate and rhythm without murmurs, gallops, or rubs. RESPIRATORY: Breath sounds equal bilaterally. No accessory muscle use. GASTROINTESTINAL: Abdomen soft, non-tender, nondistended. MUSCULOSKELETAL: No cyanosis, or edema. BACK: Nontender without obvious deformity. No CVA tenderness. Results Procedures completed during hospitalization: None Labs on day of discharge: Preliminary micro results at discharge 06/27/18 05:55 Aerobic Blood Culture - Preliminary Blood - Peripheral No growth in 2 days Anaerobic Blood Culture - Preliminary No growth in 2 days 06/27/18 05:50 Aerobic Blood Culture - Preliminary Blood - Peripheral No growth in 2 days Anaerobic Blood Culture - Preliminary gram positive cocci - Impressions ITS Impressions Chest X-Ray 06/27/18 00:00 CONCLUSION: No acute cardiopulmonary abnormality is identified. Discharge Plan - Discharge Disposition Patient Disposition: Discharge Home - Discharge Condition Condition: Fair - Discharge Order Discharge Orders: Discharge Order (Routine); Ordered 06/29/18 Ordered By: Chris Luna - Discharge Details Anticipated Discharge Date: 06/29/18 - Physicians Team Primary Care Provider: Primary Care Christie García Attending Provider: Chris Luna
[2018-06-30 09:53] LABS: Hepatitis C RNA (PCR) IUs/ml 885000 IU/mL; Hepatitis C RNA (PCR) log IUs 5.95
[2018-06-30 19:54] LABS: HCV Genotype 1a (Not Detecte)
== END 2018-06-29 10:38 | disposition home or self-care (01) ==
LOC: PHED 10:28 → PHEDA 10:28 → PHICU 16:10
PROVIDERS: ADMIT Hospitalist; ATTEND Hospitalist